=== PATIENT | male | born 1980 | race African-American/Black ===

== ENCOUNTER 2016-11-17 22:40 | Emergency (ER) | payer SELFPAY ==
[~2016-11-17] VITALS: Ht 175.3 cm; Wt 68.0 kg
[2016-11-17 22:40] VITALS: BP_SYST 118
--- NOTE | 2016-11-17 22:45 | NUR ---
PT LEFT WITHOUT BEING SEEN , WITNESSED PT LEAVING ER WITH SPOUSE.
== END 2016-11-17 22:45 | disposition left against medical advice (07) ==
LOC: SED 22:40 → EDSEX 22:40 → SED 22:45
DX: R07.9 Chest pain, unspecified (principal); R68.83 Chills (without fever); R52 Pain, unspecified; Z53.21 Procedure and treatment not carried out due to patient leaving prior to being seen by health care provider